=== PATIENT | female | born 1975 | race Caucasian/White ===

== ENCOUNTER 2017-01-29 06:51 | Inpatient (IN) | payer MEDICAID ==
[~2017-01-29] VITALS: Ht 162.6 cm; Wt 133.0 kg
[~2017-01-29 06:51] MED LIST: CARV6.25 PO
[2017-01-29 07:45] LABS: Basophils # (auto) 0 uL; Basophils % (auto) 0.2 % (0.0-2.0); Eosinophils # (auto) 0.1 uL; Eosinophils % (auto) 1.2 % (0.0-7.0); Hematocrit 38.6 % (36.0-46.0); Hemoglobin 13.3 g/dL (12.2-16.2); Lymphocytes # (auto) 1.5 uL; Lymphocytes % (auto) 24.4 % (10.0-50.0); Mean Corpuscular Hemoglobin 30.9 pg (28.0-32.0); Mean Corpuscular Hgb Conc. 34.4 g/dL (32.0-36.0); Mean Corpuscular Volume 89.7 fL (80.0-100.0); Mean Platelet Volume 7.3 fL (7.4-10.4); Monocytes # (auto) 0.7 uL; Monocytes % (auto) 11.1 % (0.0-12.0); Neutrophils # (auto) 3.9 uL; Neutrophils % (auto) 63.1 % (37.0-80.0); Platelet Count (auto) 302 10^3/uL (140-450); Red Cell Distribution Width 14.7 % (11.6-16.0); White Blood Cell 6.1 10^3/uL (4.4-10.8)
[2017-01-29] MEDS ORDERED: SODIUM CHLORIDE 0.9% 1,000 ML IVB ONE (07:53)
[2017-01-29] MEDS ORDERED: PANTOPRAZOLE SODIUM 40 MG/10 ML VIAL IV STA (07:53)
[2017-01-29] MEDS ORDERED: INDA2.5T (07:54)
[2017-01-29] MEDS ORDERED: LIDO1PAD55 (07:54)
[2017-01-29] MEDS ORDERED: OXCARBAZEPINE (07:54)
[2017-01-29] MEDS ORDERED: GAB100C PO (07:54)
[2017-01-29] MEDS ORDERED: OME20T (07:54)
[2017-01-29] MEDS ORDERED: HYDROCODONE/ACETAMINOPHEN (07:54)
[2017-01-29] MEDS ORDERED: LISI10TA6 PO (07:54)
[2017-01-29] MEDS ORDERED: CARV6.2551 (07:54)
[2017-01-29] MEDS ORDERED: HYDROmorphone HCL 2 MG/ML VL IV ONE (08:00)
[2017-01-29] MEDS ORDERED: PROCHLORPERAZINE EDISYLATE 5 MG/ML 2ML VIAL IV ONE (08:00)
[2017-01-29 08:07] LABS: Albumin 3.6 g/dL (3.4-5.0); Alkaline Phosphatase 83 U/L (45-117); Anion Gap 18 (5-15); Aspartate Aminotransferase 24 U/L (15-37); BUN/Creatinine Ratio 11.1; Bilirubin, Total 0.9 mg/dL (0.2-1.0); Blood Urea Nitrogen 11 mg/dL (7-18); Calcium 8.9 mg/dL (8.5-10.1); Carbon Dioxide 18 mmol/L (21-32); Chloride 107 mmol/L (98-107); GFR African American 79 mL/min; GFR Non-African American 66 mL/min; Glucose 174 mg/dL (74-106); Magnesium 1.7 mg/dL (1.6-2.6); Sodium 143 mmol/L (136-145); Total Protein 7.3 g/dL (6.4-8.2)
[2017-01-29 08:12] LABS: Potassium 2.6 mmol/L (3.5-5.1)
[2017-01-29] MEDS ORDERED: POTASSIUM CHL 20MEQ/100ML 100 ML IV ONE (08:30)
[2017-01-29] MEDS ORDERED: SODIUM CHLORIDE 0.9% 1,000 ML IV SCH (08:33)
[2017-01-29] MEDS ORDERED: LACTULOSE 20Gm/30ML SOLN PO PRN (08:45)
[2017-01-29] MEDS ORDERED: ACETAMINOPHEN 500 MG TAB PO PRN (08:45)
[2017-01-29] MEDS ORDERED: PANTOPRAZOLE SODIUM 40 MG/10 ML VIAL IV ONE (08:45)
[2017-01-29] MEDS ORDERED: NITROGLYCERIN 0.4 MG SL TAB SL PRN (08:45)
[2017-01-29] MEDS ORDERED: HYDROcodone-ACET 5/325MG TAB PO PRN (08:45)
[2017-01-29] MEDS ORDERED: LISINOPRIL 10 MG TAB PO ONE (09:00)
[2017-01-29] MEDS ORDERED: OXCARBAZEPINE SCH (10:00)
[2017-01-29] MEDS ORDERED: PANTOPRAZOLE 40 MG TAB PO SCH (10:00)
[2017-01-29] MEDS ORDERED: PATIENTS OWN MEDICATION (Carvedilol (Coreg) 1 TAB) PO SCH (10:00)
[2017-01-29] MEDS ORDERED: OXcarbazepine 300 MG TAB PO SCH ×2 (10:00)
[2017-01-29] MEDS: MORPHINE SULF INJ 2 MG/ML SYRINGE 1ML IV PRN ×2 (11:56→17:36)
[2017-01-29] MEDS: ONDANSETRON HCL 4 MG/2 ML VIAL IV PRN ×2 (11:56→17:50)
[2017-01-29] MEDS: CARVEDILOL 3.125 MG TAB PO SCH ×2 (12:06→21:43)
[2017-01-29] MEDS: OXcarbazepine 300 MG TAB PO SCH ×2 (12:13→21:44)
[2017-01-29 13:00] VITALS: BP 151/93
[2017-01-29] MEDS ORDERED: POTASSIUM CHL 10% (20 MEQ/15ML) ORAL SOLN PO ONE (13:00)
[2017-01-29] MEDS ORDERED: POTASSIUM CHLORIDE 20 MEQ, LIDOCAINE 1% (LOCAL ANESTH.) 2 ML in SODIUM CHL 0.9% 100 ML IV ONE (13:00)
[2017-01-29] MEDS: SOD CHL 0.9%/ KCL 40MEQ 1,000 ML IV SCH ×2 (17:18→21:20)
[2017-01-29] MEDS: GABAPENTIN 100 MG CAP PO SCH ×2 (17:19→21:43)
[2017-01-29 17:24] VITALS: BP 111/63
[2017-01-29] MEDS: TEMAZEPAM 15 MG CAP PO PRN (21:44)
[2017-01-29 22:00] VITALS: BP 97/55
[2017-01-29 23:14] LABS: Urine Bilirubin Negative (Negative); Urine Blood Negative /uL (Negative); Urine Color Yellow (Yellow); Urine Glucose Normal (Normal); Urine Ketone Negative (Negative); Urine Mucus FEW (None Seen); Urine Nitrite Negative (Negative); Urine RBC 2 /hpf (0 - 4); Urine Squamous Epithelial Cell MOD /hpf (<5); Urine Urobilinogen Normal (Negative)
[2017-01-30 05:00] VITALS: BP 96/73
[2017-01-30] MEDS: SOD CHL 0.9%/ KCL 40MEQ 1,000 ML IV SCH ×3 (05:40→23:00)
[2017-01-30] MEDS: LISINOPRIL 10 MG TAB PO SCH (05:52)
[2017-01-30] MEDS: GABAPENTIN 100 MG CAP PO SCH ×3 (05:55→22:59)
[2017-01-30 07:36] LABS: Basophils # (auto) 0 uL; Basophils % (auto) 0.6 % (0.0-2.0); Eosinophils # (auto) 0.1 uL; Eosinophils % (auto) 2.1 % (0.0-7.0); Hematocrit 32.5 % (36.0-46.0); Hemoglobin 11.2 g/dL (12.2-16.2); Lymphocytes # (auto) 1.4 uL; Lymphocytes % (auto) 44.5 % (10.0-50.0); Mean Corpuscular Hemoglobin 31.1 pg (28.0-32.0); Mean Corpuscular Hgb Conc. 34.5 g/dL (32.0-36.0); Mean Corpuscular Volume 90.2 fL (80.0-100.0); Mean Platelet Volume 7.3 fL (7.4-10.4); Monocytes # (auto) 0.4 uL; Monocytes % (auto) 13.4 % (0.0-12.0); Neutrophils # (auto) 1.2 uL; Neutrophils % (auto) 39.4 % (37.0-80.0); Platelet Count (auto) 222 10^3/uL (140-450); Red Cell Distribution Width 14.8 % (11.6-16.0); White Blood Cell 3.1 10^3/uL (4.4-10.8)
[2017-01-30 08:03] LABS: Albumin 2.9 g/dL (3.4-5.0); BUN/Creatinine Ratio 10.4; Bilirubin, Total 0.7 mg/dL (0.2-1.0); Calcium 8.1 mg/dL (8.5-10.1); Potassium 3.2 mmol/L (3.5-5.1)
[2017-01-30 09:00] VITALS: BP 98/59
[2017-01-30] MEDS: PANTOPRAZOLE 40 MG TAB PO SCH (09:40)
[2017-01-30] MEDS: ONDANSETRON HCL 4 MG/2 ML VIAL IV PRN ×3 (09:40→18:49)
[2017-01-30] MEDS: OXcarbazepine 300 MG TAB PO SCH ×2 (09:41→23:00)
[2017-01-30] MEDS: CARVEDILOL 3.125 MG TAB PO SCH ×2 (10:00→22:00)
[2017-01-30 13:00] VITALS: BP 104/71
[2017-01-30] MEDS: MORPHINE SULF INJ 2 MG/ML SYRINGE 1ML IV PRN ×3 (14:23→23:59)
[2017-01-30] MEDS ORDERED: POTASSIUM CHLORIDE 40 MEQ, LIDOCAINE 1% (LOCAL ANESTH.) 4 ML in SODIUM CHL 0.9% 250 ML IV ONE (14:30)
[2017-01-30 16:58] VITALS: BP 141/79
[2017-01-30 22:15] VITALS: BP 105/71
[2017-01-31 05:00] VITALS: BP 113/68
[2017-01-31 05:59] LABS: Basophils # (auto) 0 uL; Basophils % (auto) 0.6 % (0.0-2.0); Eosinophils # (auto) 0 uL; Eosinophils % (auto) 1.1 % (0.0-7.0); Hematocrit 32.5 % (36.0-46.0); Hemoglobin 11.1 g/dL (12.2-16.2); Lymphocytes # (auto) 1.1 uL; Lymphocytes % (auto) 34.5 % (10.0-50.0); Mean Corpuscular Volume 91.2 fL (80.0-100.0); Mean Platelet Volume 7.3 fL (7.4-10.4); Monocytes # (auto) 0.3 uL; Neutrophils # (auto) 1.7 uL; Neutrophils % (auto) 53.8 % (37.0-80.0); Platelet Count (auto) 210 10^3/uL (140-450); Red Cell Distribution Width 14.6 % (11.6-16.0); White Blood Cell 3.2 10^3/uL (4.4-10.8)
[2017-01-31] MEDS: SOD CHL 0.9%/ KCL 40MEQ 1,000 ML IV SCH ×2 (06:05→14:43)
[2017-01-31] MEDS: GABAPENTIN 100 MG CAP PO SCH ×3 (06:06→22:11)
[2017-01-31] MEDS: LISINOPRIL 10 MG TAB PO SCH (06:06)
[2017-01-31 06:36] LABS: Albumin 3.1 g/dL (3.4-5.0); BUN/Creatinine Ratio 8.5; Bilirubin, Total 0.8 mg/dL (0.2-1.0); Calcium 8.4 mg/dL (8.5-10.1); Potassium 3.7 mmol/L (3.5-5.1); Total Protein 6.1 g/dL (6.4-8.2)
[2017-01-31] MEDS: MORPHINE SULF INJ 2 MG/ML SYRINGE 1ML IV PRN ×3 (08:14→18:12)
[2017-01-31] MEDS: ONDANSETRON HCL 4 MG/2 ML VIAL IV PRN ×4 (08:14→18:13)
[2017-01-31 09:00] VITALS: BP 116/73
[2017-01-31] MEDS: CARVEDILOL 3.125 MG TAB PO SCH ×2 (10:00→22:11)
[2017-01-31] MEDS: PANTOPRAZOLE 40 MG TAB PO SCH (10:19)
[2017-01-31] MEDS: OXcarbazepine 300 MG TAB PO SCH ×2 (10:19→22:11)
[2017-01-31 13:00] VITALS: BP 131/75
[2017-01-31 17:00] VITALS: BP 125/85
[2017-01-31 22:00] VITALS: BP 136/79
[2017-01-31] MEDS: LORazepam 0.5 MG TAB PO PRN (22:11)
[2017-02-01] MEDS: SOD CHL 0.9%/ KCL 40MEQ 1,000 ML IV SCH ×3 (01:05→18:16)
[2017-02-01 05:05] VITALS: BP 100/48
[2017-02-01 05:58] LABS: Albumin 2.7 g/dL (3.4-5.0); BUN/Creatinine Ratio 5.5; Calcium 7.8 mg/dL (8.5-10.1)
[2017-02-01 06:01] LABS: Bilirubin, Total 0.5 mg/dL (0.2-1.0); Total Protein 5.5 g/dL (6.4-8.2)
[2017-02-01] MEDS: LISINOPRIL 10 MG TAB PO SCH (06:31)
[2017-02-01] MEDS: GABAPENTIN 100 MG CAP PO SCH ×3 (06:31→22:07)
[2017-02-01 09:00] VITALS: BP 109/74
[2017-02-01] MEDS: MORPHINE SULF INJ 2 MG/ML SYRINGE 1ML IV PRN ×2 (09:14→14:06)
[2017-02-01] MEDS: ONDANSETRON HCL 4 MG/2 ML VIAL IV PRN ×3 (09:14→22:05)
[2017-02-01] MEDS: PANTOPRAZOLE 40 MG TAB PO SCH ×2 (09:35→22:07)
[2017-02-01] MEDS: CARVEDILOL 3.125 MG TAB PO SCH ×2 (09:36→22:07)
[2017-02-01] MEDS: OXcarbazepine 300 MG TAB PO SCH ×2 (09:36→22:07)
[2017-02-01 13:00] VITALS: BP 117/76
[2017-02-01 16:44] VITALS: BP 121/73
[2017-02-01 22:00] VITALS: BP 129/85
[2017-02-01] MEDS: LORazepam 0.5 MG TAB PO PRN (22:05)
[2017-02-02] VITALS (7 sets, daily range): BP systolic 94–141; BP diastolic 59–89
[2017-02-02] MEDS: SOD CHL 0.9%/ KCL 40MEQ 1,000 ML IV SCH ×3 (00:20→17:00)
[2017-02-02] MEDS: MORPHINE SULF INJ 2 MG/ML SYRINGE 1ML IV PRN ×3 (01:20→20:52)
[2017-02-02 05:47] LABS: Albumin 2.8 g/dL (3.4-5.0); BUN/Creatinine Ratio 3.7; Bilirubin, Total 0.5 mg/dL (0.2-1.0); Calcium 8.1 mg/dL (8.5-10.1); Potassium 4.2 mmol/L (3.5-5.1); Total Protein 5.5 g/dL (6.4-8.2)
[2017-02-02] MEDS: LISINOPRIL 10 MG TAB PO SCH (06:29)
[2017-02-02] MEDS: GABAPENTIN 100 MG CAP PO SCH ×3 (06:40→21:49)
[2017-02-02] MEDS: CARVEDILOL 3.125 MG TAB PO SCH ×2 (10:00→21:50)
[2017-02-02] MEDS: OXcarbazepine 300 MG TAB PO SCH ×2 (10:44→21:51)
[2017-02-02] MEDS: PANTOPRAZOLE 40 MG TAB PO SCH ×2 (10:45→21:51)
[2017-02-02] MEDS: ONDANSETRON HCL 4 MG/2 ML VIAL IV PRN ×2 (11:14→20:52)
[2017-02-02] MEDS ORDERED: MORPHINE SULF INJ 2 MG/ML SYRINGE 1ML IV PRN (13:15)
[2017-02-02] MEDS: HYDROCORTISONE 2.5% OINTMENT PR SCH ×2 (14:00→21:52)
[2017-02-02] MEDS ORDERED: HYDROCORTISONE 2.5% TOPICAL CREAM 30GM TUBE PR SCH (14:00)
[2017-02-02] MEDS: SUCRALFATE 1 GM/10 ML ORAL SUSP PO SCH ×2 (17:33→21:49)
[2017-02-02] MEDS: LORazepam 0.5 MG TAB PO PRN (21:49)
[2017-02-02] MEDS: TEMAZEPAM 15 MG CAP PO PRN (21:53)
[2017-02-03] MEDS: SOD CHL 0.9%/ KCL 40MEQ 1,000 ML IV SCH ×3 (01:20→18:00)
[2017-02-03 04:55] VITALS: BP 115/75
[2017-02-03 05:44] LABS: Basophils # (auto) 0 uL; Basophils % (auto) 0.5 % (0.0-2.0); Eosinophils # (auto) 0 uL; Eosinophils % (auto) 1.1 % (0.0-7.0); Hematocrit 31.6 % (36.0-46.0); Hemoglobin 10.9 g/dL (12.2-16.2); Lymphocytes # (auto) 1.1 uL; Mean Corpuscular Hemoglobin 31.5 pg (28.0-32.0); Mean Corpuscular Hgb Conc. 34.4 g/dL (32.0-36.0); Mean Corpuscular Volume 91.4 fL (80.0-100.0); Mean Platelet Volume 6.9 fL (7.4-10.4); Monocytes # (auto) 0.4 uL; Monocytes % (auto) 11.5 % (0.0-12.0); Neutrophils # (auto) 1.7 uL; Neutrophils % (auto) 51.9 % (37.0-80.0); Platelet Count (auto) 232 10^3/uL (140-450); Red Cell Distribution Width 14.9 % (11.6-16.0); White Blood Cell 3.3 10^3/uL (4.4-10.8)
[2017-02-03 06:04] LABS: Albumin 2.9 g/dL (3.4-5.0); BUN/Creatinine Ratio 3.8; Bilirubin, Total 0.5 mg/dL (0.2-1.0); Calcium 8.3 mg/dL (8.5-10.1); Potassium 3.9 mmol/L (3.5-5.1); Total Protein 5.5 g/dL (6.4-8.2)
[2017-02-03] MEDS: GABAPENTIN 100 MG CAP PO SCH ×3 (06:38→22:16)
[2017-02-03] MEDS: SUCRALFATE 1 GM/10 ML ORAL SUSP PO SCH ×4 (06:38→22:16)
[2017-02-03] MEDS: ONDANSETRON HCL 4 MG/2 ML VIAL IV PRN ×3 (06:38→22:12)
[2017-02-03] MEDS: LISINOPRIL 10 MG TAB PO SCH (06:39)
[2017-02-03] MEDS: MORPHINE SULF INJ 2 MG/ML SYRINGE 1ML IV PRN ×2 (06:39→14:04)
[2017-02-03 08:00] VITALS: BP 124/76
[2017-02-03] MEDS ORDERED: ADENOSINE 113 MG in GIVE UN-DILUTED 0 ML IV STA (08:51)
[2017-02-03 09:00] VITALS: BP 124/76
[2017-02-03] MEDS ORDERED: DIPHENOXYLATE W/ATROPINE 2.5 MG TAB PO PRN (09:30)
[2017-02-03] MEDS: HYDROCORTISONE 2.5% OINTMENT PR SCH ×2 (12:15→22:19)
[2017-02-03 13:00] VITALS: BP 139/95
[2017-02-03] MEDS: PANTOPRAZOLE 40 MG TAB PO SCH ×2 (14:05→22:17)
[2017-02-03] MEDS: OXcarbazepine 300 MG TAB PO SCH ×2 (14:05→22:18)
[2017-02-03] MEDS: CARVEDILOL 3.125 MG TAB PO SCH ×2 (14:08→23:09)
[2017-02-03 16:59] VITALS: BP 126/83
[2017-02-03 22:00] VITALS: BP 138/84
[2017-02-03] MEDS: LORazepam 0.5 MG TAB PO PRN (23:10)
[2017-02-04] MEDS: SOD CHL 0.9%/ KCL 40MEQ 1,000 ML IV SCH (03:37)
[2017-02-04 05:00] VITALS: BP 93/56
[2017-02-04] MEDS: SUCRALFATE 1 GM/10 ML ORAL SUSP PO SCH (06:17)
[2017-02-04] MEDS: GABAPENTIN 100 MG CAP PO SCH (06:17)
[2017-02-04] MEDS: LISINOPRIL 10 MG TAB PO SCH (06:19)
[2017-02-04 06:53] LABS: Bilirubin, Total 0.5 mg/dL (0.2-1.0); Calcium 8.6 mg/dL (8.5-10.1); Total Protein 5.9 g/dL (6.4-8.2)
[2017-02-04 08:11] VITALS: BP 112/79
[2017-02-04] MEDS: ONDANSETRON HCL 4 MG/2 ML VIAL IV PRN (08:59)
[2017-02-04] MEDS: MORPHINE SULF INJ 2 MG/ML SYRINGE 1ML IV PRN (08:59)
[2017-02-04] MEDS: OXcarbazepine 300 MG TAB PO SCH (09:23)
[2017-02-04] MEDS: PANTOPRAZOLE 40 MG TAB PO SCH (09:23)
[2017-02-04] MEDS: CARVEDILOL 3.125 MG TAB PO SCH (09:24)
[2017-02-04] MEDS: HYDROCORTISONE 2.5% OINTMENT PR SCH (09:25)
[2017-02-04 10:23] VITALS: BP 112/79
[2017-02-06 13:35] LABS: Endomysial IgA Antibody Negative (Negative)
== END 2017-02-04 10:50 | disposition home or self-care (01) | DRG 241 ==
LOC: ER 06:51 → EDBD 06:51 → TELE 06:52 → TELE-E-ADS 10:19 → TELE-WESTW 14:28
PROVIDERS: ADMIT Internal Medicine; ATTEND Internal Medicine
DX: K29.70 Gastritis, unspecified, without bleeding (principal); K85.90 Acute pancreatitis without necrosis or infection, unspecified; E44.0 Moderate protein-calorie malnutrition; K90.0 Celiac disease; I10 Essential (primary) hypertension; E87.6 Hypokalemia; K21.9 Gastro-esophageal reflux disease without esophagitis; F41.9 Anxiety disorder, unspecified; J45.909 Unspecified asthma, uncomplicated; E66.9 Obesity, unspecified; R73.9 Hyperglycemia, unspecified; D35.02 Benign neoplasm of left adrenal gland; G40.909 Epilepsy, unspecified, not intractable, without status epilepticus; K27.9 Peptic ulcer, site unspecified, unspecified as acute or chronic, without hemorrhage or perforation; K64.9 Unspecified hemorrhoids; F12.90 Cannabis use, unspecified, uncomplicated; K58.0 Irritable bowel syndrome with diarrhea; D64.9 Anemia, unspecified; Z87.19 Personal history of other diseases of the digestive system; Z90.721 Acquired absence of ovaries, unilateral; Z87.11 Personal history of peptic ulcer disease; Z88.8 Allergy status to other drugs, medicaments and biological substances; Z82.49 Family history of ischemic heart disease and other diseases of the circulatory system; Z82.3 Family history of stroke; Z68.43 Body mass index [BMI] 50.0-59.9, adult; Z98.51 Tubal ligation status
CPT/HCPCS: 36415; 71010; 74176; 76705; 78226; 78452; 80053; 80061; 81001; 82150; 82550; 82784; 83516; 83690; 83735; 84484; 85025; 85379; 85652; 86141; 86255; 87081; 87493; 93005; 93017; 93306; 94761; 96374; 96375; C9113; G0434; J0153; J2001; J2405; J3480

== ENCOUNTER 2022-06-22 19:50 | Inpatient (IN) | payer MEDICAID ==
[~2022-06-22] VITALS: Ht 167.6 cm; Wt 157.5 kg
[~2022-06-22 19:50] MED LIST changes: +GAB100C PO; +HYDROCODONE/ACETAMINOPHEN; +LISI-716 PO; +OXCARBAZEPINE
[2022-06-22] MEDS ORDERED: LABETALOL HCL 5 MG/ML 4ML SYRINGE IV ONE (20:30)
[2022-06-22] MEDS ORDERED: LORazepam 2MG/ML-1ML VIAL IV ONE (20:30)
[2022-06-22] MEDS ORDERED: MIDAZOLAM HCL 5 MG/ML-1ML VIAL IV ONE ×2 (21:00→21:30)
[2022-06-22] MEDS ORDERED: levETIRAcetam 500 MG/5ML INJ IV ONE (21:03)
[2022-06-22 22:17] LABS: Basophils # (auto) 0 10 ^3/uL (0-0.2); Basophils % (auto) 0.4 % (0.0-2.0); Eosinophils # (auto) 0 10 ^3/uL (0-0.8); Hematocrit 44.6 % (36.0-46.0); Hemoglobin 14.5 g/dL (12.2-16.2); Lymphocytes # (auto) 0.9 10 ^3/uL (0.4-5.4); Lymphocytes % (auto) 8.2 % (10.0-50.0); Mean Corpuscular Hemoglobin 27.8 pg (28.0-32.0); Mean Corpuscular Hgb Conc. 32.4 g/dL (32.0-36.0); Mean Corpuscular Volume 85.6 fL (80.0-100.0); Monocytes # (auto) 1.4 10 ^3/uL (0-1.3); Monocytes % (auto) 12.6 % (0.0-12.0); Neutrophils # (auto) 8.5 10 ^3/uL (1.6-8.6); Neutrophils % (auto) 78.8 % (37.0-80.0); Red Cell Distribution Width 16.5 % (11.8-14.3); White Blood Cell 10.8 10^3/uL (4.4-10.8)
[2022-06-22 22:34] LABS: Calcium 9.5 mg/dL (8.5-10.1); Potassium 3.2 mmol/L (3.5-5.1)
[2022-06-22 22:45] LABS: Albumin 3.8 g/dL (3.4-5.0); BUN/Creatinine Ratio 9.2; Bilirubin, Total 1.2 mg/dL (0.2-1.0); Total Protein 7.8 g/dL (6.4-8.2)
[2022-06-22] MEDS ORDERED: LEVE500T32 PO (23:29)
[2022-06-23] VITALS (7 sets, daily range): BP systolic 121–164; BP diastolic 76–101
[2022-06-23] MEDS ORDERED: NITROGLYCERIN 0.4 MG SL TAB SL PRN (00:15)
[2022-06-23] MEDS ORDERED: POTASSIUM CHL 20MEQ/100ML 100 ML IV ONE (00:15)
[2022-06-23] MEDS ORDERED: TEMAZEPAM 15 MG CAP PO PRN (00:15)
[2022-06-23] MEDS ORDERED: DEXTROSE (50%) 50ML SYRG IV PRN (00:15)
[2022-06-23] MEDS: MORPHINE SULFATE INJ 2 MG/ml SYRG IV PRN ×3 (01:43→19:43)
[2022-06-23] MEDS ORDERED: LORazepam 2MG/ML-1ML VIAL IV PRN (03:45)
[2022-06-23] MEDS: GABAPENTIN 100 MG CAP PO SCH ×2 (05:58→22:00)
[2022-06-23] MEDS: ACCU-CHEK COMFORT CURVE STRIP VI SCH ×4 (06:04→22:30)
[2022-06-23] MEDS: InsuLIN REG 1unit/0.01ml Soln (100units/ml) SC SCH ×4 (06:14→23:00)
[2022-06-23] MEDS: hydrALAZINE HCL 20 MG/ML VL IV PRN ×2 (06:14→19:42)
[2022-06-23] MEDS: MIDAZOLAM HCL 2MG/2ML 2ml VIAL (1mg/ml) IV PRN ×3 (06:14→20:39)
[2022-06-23] MEDS: CARVEDILOL 3.125 MG TAB PO SCH ×2 (08:45→22:00)
[2022-06-23] MEDS: levETIRAcetam 500 MG TAB PO SCH ×2 (08:45→22:30)
[2022-06-23] MEDS: QUEtiapine FUMARATE 100 MG TAB PO SCH (08:49)
[2022-06-23] MEDS: LISINOPRIL 10 MG TAB PO SCH (08:49)
[2022-06-23] MEDS: OXcarbazepine 300 MG TAB PO SCH ×2 (08:49→22:30)
[2022-06-23] MEDS: ONDANSETRON HCL 4 MG/2 ML VIAL IV PRN ×2 (11:52→19:41)
[2022-06-23 13:26] LABS: BUN/Creatinine Ratio 10.6; Calcium 7.9 mg/dL (8.5-10.1); Potassium 3.6 mmol/L (3.5-5.1)
[2022-06-23] MEDS ORDERED: RIVAROXABAN 20 MG TAB PO SCH (18:00)
[2022-06-23] MEDS ORDERED: MIDAZOLAM HCL 2MG/2ML 2ml VIAL (1mg/ml) IV PRN ×2 (22:00)
[2022-06-24 05:00] VITALS: BP 139/80
[2022-06-24 05:42] LABS: Basophils # (auto) 0 10 ^3/uL (0-0.2); Basophils % (auto) 0.8 % (0.0-2.0); Eosinophils # (auto) 0 10 ^3/uL (0-0.8); Eosinophils % (auto) 0.8 % (0.0-7.0); Hematocrit 34.8 % (36.0-46.0); Hemoglobin 11.8 g/dL (12.2-16.2); Lymphocytes # (auto) 1.1 10 ^3/uL (0.4-5.4); Lymphocytes % (auto) 22.9 % (10.0-50.0); Mean Corpuscular Hemoglobin 29.1 pg (28.0-32.0); Mean Corpuscular Hgb Conc. 33.9 g/dL (32.0-36.0); Monocytes # (auto) 0.8 10 ^3/uL (0-1.3); Monocytes % (auto) 15.5 % (0.0-12.0); Red Blood Cells 4.05 10^6/uL (4.0-5.20)
[2022-06-24] MEDS: GABAPENTIN 100 MG CAP PO SCH ×2 (06:00→14:00)
[2022-06-24 06:06] LABS: Calcium 8.6 mg/dL (8.5-10.1)
[2022-06-24 06:11] LABS: Total Protein 6.2 g/dL (6.4-8.2)
[2022-06-24] MEDS: ACCU-CHEK COMFORT CURVE STRIP VI SCH ×2 (06:48→11:30)
[2022-06-24] MEDS: InsuLIN REG 1unit/0.01ml Soln (100units/ml) SC SCH ×2 (06:53→11:30)
[2022-06-24] MEDS: MORPHINE SULFATE INJ 2 MG/ml SYRG IV PRN (06:55)
[2022-06-24] MEDS: ONDANSETRON HCL 4 MG/2 ML VIAL IV PRN ×2 (07:03→12:30)
[2022-06-24 08:49] VITALS: BP 151/84
[2022-06-24] MEDS: CARVEDILOL 3.125 MG TAB PO SCH (09:15)
[2022-06-24] MEDS: levETIRAcetam 500 MG TAB PO SCH (09:15)
[2022-06-24] MEDS: LISINOPRIL 10 MG TAB PO SCH (09:16)
[2022-06-24] MEDS: QUEtiapine FUMARATE 100 MG TAB PO SCH (09:16)
[2022-06-24] MEDS: OXcarbazepine 300 MG TAB PO SCH (09:16)
[2022-06-24] MEDS ORDERED: ALUM & MAG HYDROX-SIMETH LIQ(MAALOX) 30 ML PO ONE (13:15)
[2022-06-24 14:38] VITALS: BP 144/88
[2022-06-24 14:45] VITALS: BP 105/68
== END 2022-06-24 15:58 | disposition home or self-care (01) | DRG 53 ==
LOC: EDUNIT# 19:50 → EDBD 19:50 → ER 19:52 → TELE 06-23 00:14 → TELE-WESTW 06-23 03:30
PROVIDERS: ADMIT Nurse Practitioner; ATTEND Internal Medicine
DX: G40.401 Other generalized epilepsy and epileptic syndromes, not intractable, with status epilepticus (principal); I67.83 Posterior reversible encephalopathy syndrome; F31.9 Bipolar disorder, unspecified; I16.1 Hypertensive emergency; F43.10 Post-traumatic stress disorder, unspecified; E66.01 Morbid (severe) obesity due to excess calories; E11.9 Type 2 diabetes mellitus without complications; K21.9 Gastro-esophageal reflux disease without esophagitis; Z20.822 Contact with and (suspected) exposure to COVID-19; I10 Essential (primary) hypertension; J45.909 Unspecified asthma, uncomplicated; Z79.01 Long term (current) use of anticoagulants; Z79.899 Other long term (current) drug therapy; Z82.3 Family history of stroke; Z82.49 Family history of ischemic heart disease and other diseases of the circulatory system; Z83.3 Family history of diabetes mellitus; Z86.711 Personal history of pulmonary embolism; Z86.718 Personal history of other venous thrombosis and embolism; Z87.11 Personal history of peptic ulcer disease; Z91.19 Patient's noncompliance with other medical treatment and regimen; Z68.43 Body mass index [BMI] 50.0-59.9, adult; Z88.8 Allergy status to other drugs, medicaments and biological substances
CPT/HCPCS: 36415; 71045; 80048; 80053; 82962; 83690; 83735; 84484; 85025; 93005; 95819; 96365; 96367; 96375; 96376; G0378; J1815; J2250; J2405; J3480; J3490; J7060

== ENCOUNTER 2022-08-18 10:44 | Emergency (ER) | payer MEDICAID ==
[~2022-08-18] VITALS: Ht 165.1 cm; Wt 150.0 kg
[~2022-08-18 10:44] MED LIST changes: +LEVE500T32 PO; -OXCARBAZEPINE
[2022-08-18] MEDS ORDERED: LORazepam 2MG/ML-1ML VIAL ONE (11:09)
[2022-08-18] MEDS ORDERED: LORazepam 2MG/ML-1ML VIAL IM ONE (11:15)
[2022-08-18] MEDS ORDERED: SODIUM CHLORIDE 0.9% 1,000 ML IV ONE ×2 (11:45)
[2022-08-18] MEDS ORDERED: HALOPERIDOL LACTATE 5 MG/ML INJ VIAL IM ONE (12:45)
[2022-08-18 14:45] LABS: Amphetamine Screen, Urine NEGATIVE (NEGATIVE); Barbiturate Scree,Urine NEGATIVE (NEGATIVE); Benzodiazephine Screen, Urine POSITIVE (NEGATIVE); Cannabinoid Screen, Urine NEGATIVE (NEGATIVE); Cocaine Screen, Urine NEGATIVE (NEGATIVE); Opiate Scree,Urine NEGATIVE (NEGATIVE)
[2022-08-18 14:53] LABS: Phencyclidine Screen, Urine NEGATIVE (NEGATIVE)
[2022-08-19 04:44] LABS: Urine Bacteria FEW /hpf (None Seen); Urine Blood 1+ /uL (Negative); Urine Budding Yeast MODERATE /hpf (None Seen); Urine Mucus MODERATE (None Seen); Urine Specific Gravity 1.023 (1.001-1.035); Urine WBC 217 /hpf (0 - 5)
[2022-08-19] MEDS ORDERED: HALOPERIDOL LACTATE 5 MG/ML INJ VIAL IM ONE (05:00)
[2022-08-19] MEDS ORDERED: ONDANSETRON HCL 4 MG/2 ML VIAL IV ONE (05:00)
[2022-08-19] MEDS ORDERED: MORPHINE SULFATE INJ 2 MG/ml SYRG IV ONE ×2 (05:00→08:00)
[2022-08-19 05:25] LABS: Basophils # (auto) 0 10 ^3/uL (0-0.2); Basophils % (auto) 1.2 % (0.0-2.0); Eosinophils # (auto) 0.1 10 ^3/uL (0-0.8); Eosinophils % (auto) 2.4 % (0.0-7.0); Hematocrit 31.4 % (36.0-46.0); Hemoglobin 10.5 g/dL (12.2-16.2); Lymphocytes % (auto) 38.4 % (10.0-50.0); Mean Corpuscular Hemoglobin 30.6 pg (28.0-32.0); Mean Corpuscular Hgb Conc. 33.4 g/dL (32.0-36.0); Mean Corpuscular Volume 91.6 fL (80.0-100.0); Monocytes # (auto) 0.4 10 ^3/uL (0-1.3); Monocytes % (auto) 15.4 % (0.0-12.0); Neutrophils # (auto) 1.1 10 ^3/uL (1.6-8.6); Neutrophils % (auto) 42.6 % (37.0-80.0); Nucleated Red Blood Cells % 0.1 %; Red Blood Cells 3.43 10^6/uL (4.0-5.20); Red Cell Distribution Width 17.5 % (11.8-14.3); White Blood Cell 2.7 10^3/uL (4.4-10.8)
[2022-08-19 05:36] LABS: Albumin 3.4 g/dL (3.4-5.0); BUN/Creatinine Ratio 12.5; Calcium 8.7 mg/dL (8.5-10.1)
[2022-08-19 05:39] LABS: Bilirubin, Total 0.9 mg/dL (0.2-1.0); Total Protein 6.8 g/dL (6.4-8.2)
[2022-08-19 05:53] LABS: Potassium 2.9 mmol/L (3.5-5.1)
[2022-08-19] MEDS ORDERED: POTASSIUM EFFERVESENT TAB 25 MEQ PO ONE (07:15)
[2022-08-19 10:00] VITALS: BP 164/97
[2022-08-19] MEDS ORDERED: QUEtiapine FUMARATE 25 MG TAB PO SCH (22:00)
[2022-08-20] MEDS ORDERED: SERTRALINE HCL 50 MG TAB PO SCH (07:00)
== END 2022-08-19 10:39 | disposition home or self-care (01) ==
LOC: ER 10:44 → EDBD 10:44 → ER 08-19 10:39
DX: F41.9 Anxiety disorder, unspecified (principal); I10 Essential (primary) hypertension; E11.9 Type 2 diabetes mellitus without complications; K21.9 Gastro-esophageal reflux disease without esophagitis; J45.909 Unspecified asthma, uncomplicated
CPT/HCPCS: 36415; 74176; 80053; 80307; 81001; 83690; 85025; 96361; 96372; 96374; 96375; 96376; 99285; J1630; J2060; J2270; J2405